=== PATIENT | male | born 1970 | race Caucasian/White ===

== ENCOUNTER 2020-10-09 20:34 | Emergency (ER) | payer BC ==
[~2020-10-09] VITALS: Ht 188 cm; Wt 145.2 kg
[~2020-10-09 20:34] MED LIST: BP MED; FLEXERIL PO; MEDROLDOSEPACK PO; NORCO 5-325 TA1 EACH PO
[2020-10-09] MEDS ORDERED: IBUPROFEN 800800 MG PO (23:31)
[2020-10-09] MEDS ORDERED: HYDROCODON-ACE1 EAC7 PO (23:31)
[2020-10-09 23:47] VITALS: BP 142/79
== END 2020-10-09 23:47 | disposition home or self-care (01) ==
LOC: M.ERS 20:34
DX: S93.491A Sprain of other ligament of right ankle, initial encounter (principal); I10 Essential (primary) hypertension; X50.9XXA Other and unspecified overexertion or strenuous movements or postures, initial encounter; Y93.89 Activity, other specified; Y92.89 Other specified places as the place of occurrence of the external cause; Y99.8 Other external cause status

== ENCOUNTER → 2021-03-06 | Outpatient (CLI) | payer OTHER ==
[~2021-03-06] MED LIST changes: +HYDROCODON-ACE1 EAC7 PO; +IBUPROFEN 800800 MG PO
== END ==
LOC: M.LAB 06:16
PROVIDERS: ATTEND Podiatrist Foot & Ankle Surgery
DX: Z01.812 Encounter for preprocedural laboratory examination (principal); Z20.822 Contact with and (suspected) exposure to COVID-19